=== PATIENT | female | born 1985 | race African-American/Black ===

== ENCOUNTER 2016-06-16 05:04 | Emergency (ER) | payer MEDICAID, OTHER ==
[~2016-06-16] VITALS: Ht 160 cm; Wt 88.0 kg
[2016-06-16] MEDS ORDERED: MORPHINE SULFATE 4 MG/ML CPJ (NOT FOR IM USE) IV STA ×2 (06:55→09:17)
[2016-06-16] MEDS ORDERED: ONDANSETRON HCL 4MG/2ML VIAL IV STA ×2 (06:55→09:17)
[2016-06-16 07:12] LABS: PARTIAL THROMBOPLASTIN TIME 26.6 sec (24.0-34.0); PROTHROMBIN TIME 10.2 sec
[2016-06-16 07:15] LABS: BASOPHILS % 0.5 % (0.0-2.0); EOSINOPHILS % 0.1 % (0.0-5.0); HEMATOCRIT. 37.8 % (36.0-48.0); HEMOGLOBIN. 12.7 g/dL (12.0-16.0); LYMPHOCYTES % 25.2 % (20.0-50.0); MEAN CORPUSCULAR HEMOGLOBIN 29.6 pg (28.0-32.0); MEAN CORPUSCULAR HGB CONC 33.5 g/dL (31.0-37.0); MEAN CORPUSCULAR VOLUME 88.3 fL (81.0-99.0); MEAN PLATELET VOLUME 10.4 fl (7.4-10.4); MONOCYTES % 5.4 % (2.0-8.0); NEUTROPHILS % 68.8 % (40.0-76.0); PLATELET 185 x1000/uL (130-400); RED BLOOD CELL COUNT 4.29 mill/uL (4.2-5.4); RED CELL DISTRIBUTION WIDTH 13.3 % (11.6-14.6); WHITE BLOOD COUNT 8.3 x1000/uL (4.5-11.0)
[2016-06-16 07:17] LABS: *AMPHETAMINES SCREEN URINE NEGATIVE (NEGATIVE); *BARBITURATES SCREEN URINE NEGATIVE (NEGATIVE); *BENZODIAZEPINES SCREEN URINE NEGATIVE (NEGATIVE); *COCAINE SCREEN URINE NEGATIVE (NEGATIVE); CANNABINOID URINE SCREEN NEGATIVE (NEGATIVE); ECSTASY MDMA SCREEN URINE NEGATIVE (NEGATIVE); METHADONE URINE SCREEN NEGATIVE (NEGATIVE); OPIATES URINE SCREEN NEGATIVE (NEGATIVE); PHENCYCLIDINE URINE SCREEN NEGATIVE (NEGATIVE)
[2016-06-16 07:20] LABS: ALANINE AMINOTRANSFERASE 17 IU/L (13-61); ALBUMIN 3.6 g/dL (3.4-5.0); ANION GAP 13; CALCIUM 8.7 mg/dL (8.5-10.1); CARBON DIOXIDE 26 mEq/L (21-32); CHLORIDE 105 mEq/L (98-107); INDEX HEMOLYSI 1 (1-3); INDEX ICTERIC 1 (1-4); INDEX LIPEMIC 1 (1-3); LIPASE 129 IU/L (73-393); TROPONIN I < 0.02 ng/mL (0.00-0.04); UREA NITROGEN BLOOD 12 mg/dL (7-21); eGFR > 60 mL/min (>60)
[2016-06-16 10:07] VITALS: BP 110/66
== END 2016-06-16 11:30 | disposition home or self-care (01) ==
LOC: ER 05:04
DX: R07.89 Other chest pain (principal)
CPT/HCPCS: 36415; 71010; 76705; 80053; 80305; 81025; 83690; 84484; 85025; 85610; 85730; 93005; 96374; 96375; 96376; 99285; J2270; J2405; Z7610

== ENCOUNTER 2019-05-25 04:33 | Emergency (ER) | payer MEDICAID ==
[~2019-05-25] VITALS: Ht 160 cm; Wt 95.0 kg
[2019-05-25] MEDS ORDERED: KETOROLAC 30MG/ML VIAL IM ONE (06:45)
[2019-05-25] MEDS ORDERED: ALBUTEROL (0.083%) 2.5MG/3ML NEB HHN ONE (06:45)
[2019-05-25 07:41] VITALS: BP 120/78
== END 2019-05-25 07:43 | disposition home or self-care (01) ==
LOC: ER 04:33
DX: J06.9 Acute upper respiratory infection, unspecified (principal)
CPT/HCPCS: 71045; 81025; 94640; 96372; 99283; J1885; J7610; Z7610